=== PATIENT | male | born 1990 | race African-American/Black ===

== ENCOUNTER 2016-12-11 15:50 | Emergency (ER) | payer OTHER ==
[~2016-12-11] VITALS: Ht 182.9 cm; Wt 75.6 kg
[2016-12-11 15:55] VITALS: BP 109/68; TEMP 36.5; Ht 182.9 cm; Wt 75.6 kg
--- NOTE | 2016-12-11 16:47 | DIAGNOSTIC IMAGING REPORT ---
RIGHT SHOULDER 3 VIEWS CLINICAL HISTORY: Shoulder dislocation post reduction. FINDINGS: 3 views of the right shoulder are obtained. No prior studies are available for comparison at the time of dictation. The skeletal structures are well mineralized. No fracture or dislocation is seen. The glenohumeral and acromioclavicular joints are in anatomic alignment. The overlying soft tissues are within normal limits. The imaged right lung parenchyma appears clear. IMPRESSION: No fracture or dislocation is identified. Electronically signed by: John Young M.D. 12/11/2016 4:45 PM Dictated Date/Time: 12/11/2016 4:45 PM
--- NOTE | 2016-12-11 17:04 | EMERGENCY ROOM VISIT NOTE ---
ED Visit Note First contact with patient: 15:57 Chief Complaint: RIGHT Shoulder Pain History of Present Illness: Patient is a 26-year-old male who presents to the emergency department today for evaluation of his RIGHT shoulder pain/ dislocation. The patient reports a long-standing history of multiple shoulder dislocations in the past. He reports that all playing basketball this evening he reached into steel a ball when he felt his shoulder dislocate. He felt an immediate pop and inability to move the shoulder. He typically is able to reduce the shoulder himself without issue, but was not able to do so this time. He was placed in a shoulder sling and brought to the emergency Department for further evaluation and management. The patient rates his current discomfort as an 8/10. He denies any numbness or tingling into the distal extremity. He reports no associated neck pain, elbow pain, forearm pain, or wrist pain. Medications: No current medications. Allergies: No known allergies. PMH: No pertinent past medical history. SHx: Patient is a 26-year-old male who is currently incarcerated at [facility]. ROS: All pertinent positive and negative review of systems are appropriately documented in the History of Present Illness. Physical Exam: VITAL SIGNS - Vital signs and nursing notes were reviewed. GENERAL - 26-year-old male appearing his stated age and in noticeable discomfort throughout the exam. NECK - FROM of the cervical spine. No spinous process or paraspinal muscle tenderness to palpation. No nuchal rigidity. LUNGS - Chest wall symmetric without accessory muscle use, intercostals retractions, or central cyanosis. Normal vesicular breath sounds CTA B/L. No wheezes, rales, or rhonchi appreciated. CARDIAC - RRR with S1/S2. No murmur, rubs, or gallops appreciated. MUSCULOSKELETAL - Active ROM of the RIGHT shoulder was limited in all directions. Greater than 60 of abduction. No step-off deformities of the clavicle were palpable. No tenderness over the AC joint with palpation. No tenderness to palpation at the bicipital insertion. Moderate tenderness to palpation over the deltoid. NEUROLOGIC - SENSORY: Spinothalamic tract was found to be intact with ability to discriminate sharp versus dull sensation at the level of the RIGHT side of the neck down to the fingertips. No sensory deficits of the dorsal column were appreciated utilizing light touch for evaluation. VASCULAR - Capillary refill was brisk. +3/5 radial pulse palpated. IMAGING: RIGHT SHOULDER 3 VIEWS CLINICAL HISTORY: Shoulder dislocation post reduction. FINDINGS: 3 views of the right shoulder are obtained. No prior studies are available for comparison at the time of dictation. The skeletal structures are well mineralized. No fracture or dislocation is seen. The glenohumeral and acromioclavicular joints are in anatomic alignment. The overlying soft tissues are within normal limits. The imaged right lung parenchyma appears clear. IMPRESSION: No fracture or dislocation is identified. ED Course: Patient was seen and evaluated by myself. On initial evaluation, it was felt the patient had a shoulder dislocation per nursing staff. On evaluation, the patient has no obvious dislocation by exam. X-ray was obtained and demonstrates no fracture, dislocation, or subluxation. Patient was placed back into his arm sling he was provided the retirement. He will continue conservative measures as previously. He'll return for any changing or worsening symptoms. Patient discharged home in good condition. In the evaluation and treatment of this patient, the following differential diagnoses were considered: Shoulder Contusion, Shoulder Fracture, Shoulder Dislocation, Thoracic Outlet Syndrome, Adhesive Capsulitis, Rotator Cuff Tear, Proximal Clavicle Head Fracture, Apical Pneumonia, Pneumothorax, Hemothorax, or TB. Impression: RIGHT Shoulder Dislocation with Spontaneous Reduction Discharge Instructions: You have been treated in the Emergency Department for Shoulder Dislocation with Spontaneous Reduction. For pain control, you can use the following [id number] medicines (if >12 yo): - Regular strength (325mg/tab) Tylenol (acetaminophen) 2 tabs every 4-6 hours as needed. Do not exceed 12 tablets in a 24 hour period. Avoid taking more than 4 grams (4000 mg) of Tylenol per day. This includes any other sources of acetaminophen you may take on a regular basis. - Regular strength (200 mg/tab) Advil (ibuprofen) 1-2 tabs every 4-6 hours as needed. Do not exceed a dose of 3200 mg per day. If this is a recent injury (<24 hrs), ice can be applied to the area of pain for the first 3 days to help decrease pain and inflammation. Use the arm sling for comfort for the next week. Return to the Emergency Department if your current symptoms worsen despite treatment course outlined above, or if you develop any of the following symptoms : intractable pain despite aforementioned treatment course or new onset of numbness or tingling of the arm. Current/Historical Medications No Active Prescriptions or Reported Meds Allergies Coded Allergies: No Known Allergies (Unverified , 12/11/16) Vital Signs Date Time Temp Pulse Resp B/P Pulse Ox O2 Delivery O2 Flow Rate FiO2 12/11/16 17:18 70 18 99 Room Air 12/11/16 15:55 36.5 73 16 109/68 99 Room Air Departure Information Impression Primary Impression: Closed dislocation of right shoulder Dispostion Home / Self-Care Condition GOOD Prescriptions No Active Prescriptions or Reported Meds Referrals Oniel LOMELI (PCP) Patient Instructions My [facility] Additional Instructions You have been treated in the Emergency Department for Shoulder Dislocation with Spontaneous Reduction. For pain control, you can use the following [id number] medicines (if >12 yo): - Regular strength (325mg/tab) Tylenol (acetaminophen) 2 tabs every 4-6 hours as needed. Do not exceed 12 tablets in a 24 hour period. Avoid taking more than 4 grams (4000 mg) of Tylenol per day. This includes any other sources of acetaminophen you may take on a regular basis. - Regular strength (200 mg/tab) Advil (ibuprofen) 1-2 tabs every 4-6 hours as needed. Do not exceed a dose of 3200 mg per day. If this is a recent injury (<24 hrs), ice can be applied to the area of pain for the first 3 days to help decrease pain and inflammation. Use the arm sling for comfort for the next week. Return to the Emergency Department if your current symptoms worsen despite treatment course outlined above, or if you develop any of the following symptoms : intractable pain despite aforementioned treatment course or new onset of numbness or tingling of the arm. Problem Qualifiers Primary Impression: Closed dislocation of right shoulder Encounter type: initial encounter Qualified Codes: S43.004A - Unspecified dislocation of right shoulder joint, initial encounter
[2016-12-11 17:18] VITALS: PULSE 70; O2SAT 99
== END 2016-12-11 17:18 | disposition home or self-care (01) ==
LOC: C.EDB 15:52 → C.EDD 17:18
DX: S43.004A Unspecified dislocation of right shoulder joint, initial encounter (principal); X58.XXXA Exposure to other specified factors, initial encounter; Y93.67 Activity, basketball; Y99.8 Other external cause status